=== PATIENT | female | born 1995 | race Caucasian/White ===

== ENCOUNTER 2023-10-23 18:53 | Emergency (ER) | payer OTHER, SELFPAY ==
[2023-10-23 19:02] VITALS: BP 116/70; PULSE 69; RESP 18; TEMP 36.6; O2SAT 99; BMI 29.4
--- NOTE | 2023-10-23 19:14 | ECG_ITS ---
The [facility] Test Date: 2023-10-23 Pat Name: NEIL TIMMONS Department: Room: - Gender: Female Security Developer: : 1995 Requested By: VALERI QUINONEZ Order Number: [id number] Reading MD: CAIT OROZCO Measurements Intervals [place] Rate: 66 P: 49 MO: 200 QRS: 39 QRSD: 86 T: 16 QT: 392 QTc: 405 Interpretive Statements 1100 Sinus rhythm 9110 normal ECG No previous ECG available for comparison Electronically Signed On 10-23-2023 23:40:50 EDT by CAIT OROZCO
--- NOTE | 2023-10-23 19:14 | CT_ITS ---
The [address] [address] Patient Name: NEIL TIMMONS MRN: [id number] date: 1995 Sex: F Assigned Patient Location: ER Current Patient Location: ER Accession/Order Number: [id number] Exam Date: 10/23/2023 19:58 Report Date: 10/23/2023 20:51 At the request of: ISABELLE DELEON Procedure: CT chest w con EXAM: CT chest w con HISTORY: Anterior chest wall pain and mass COMPARISON: None. TECHNIQUE: CT of the chest with intravenous contrast. Dose reduction techniques were achieved by using automated exposure control and/or adjustment of mA and/or kV according to patient size and/or use of iterative reconstruction technique. FINDINGS: TUBES AND IMPLANTS: None. CHEST: CHEST WALL AND LOWER NECK: Unremarkable. MEDIASTINUM AND JOSHUA: Unremarkable. BONES: No suspicious lesions. AORTA: No aneurysm PULMONARY ARTERIES: No embolism CORONARY ARTERIES: No coronary artery calcifications. HEART: Unremarkable. LUNG AND AIRWAYS: Unremarkable. PLEURA: Unremarkable. UPPER ABDOMEN: Postsurgical changes of gastric bypass surgery. Small hyperenhancing 1.2 centimeter lesion seen in the left lobe of the liver. CT/CT chest w con IMPRESSION: No acute intrathoracic process or mass is identified. Indeterminate arterially enhancing 1.2 centimeter lesion seen in the left lobe of the liver. This may represent an adenoma or flash filling hemangioma. Abdominal MR can be considered for further evaluation as clinically warranted. Electronically authenticated by: LAURA KIRKPATRICK Date: 10/23/2023 20:51
--- NOTE | 2023-10-23 19:17 | ED.GENADUL1 ---
HPI - General Adult General Chief complaint: Abdominal Pain Stated complaint: Abdominal Pain Time Seen by Provider: 10/23/23 19:02 Source: patient Mode of arrival: walk-in Limitations: no limitations History of Present Illness HPI narrative: Patient is a 28-year-old Female who presents to the emergency department for pain over the xiphoid process of the sternum and left anterior chest wall. She states she feels a lump . She has no significant abdominal pain. She reports minimal soreness in the epigastrium under the xiphoid process. She states she was seen at [place] for this 4 days ago and had a CT of the abdomen and pelvis which was normal. She states she was discharged home on Pepcid. She has a history of acid reflux. She states she came to this emergency department because she does not believe that [facility] [place] did anything for her. She is not concerned for . She has had previous tubal ligation, gastric bypass, cholecystectomy. Related Data Home Medications ?Medication ?Instructions ?Recorded ?Confirmed sertraline 50 mg tablet 50 mg PO Q24H 10/23/23 10/23/23 Previous Rx's ?Medication ?Instructions ?Recorded methocarbamol 750 mg tablet 750 mg PO TID PRN pain #20 tabs 10/23/23 Allergies Allergy/AdvReac Type Severity Reaction Status Date / Time No Known Drug Allergies Allergy Verified 10/23/23 19:08 Review of Systems ROS Constitutional Denies: fever or chills Ears, nose, mouth, and throat Denies: throat pain or nasal congestion Cardiovascular Denies: chest pain Respiratory Denies: shortness of breath or cough Gastrointestinal Denies: nausea, vomiting or diarrhea Genitourinary Denies: painful urination Musculoskeletal Denies: back pain Integumentary/Breast Denies: rash Neurological Denies: headache Hematologic/Lymphatic Denies: easy bruising or easy bleeding Exam Narrative Exam Narrative: Gen.: Awake, alert, in no distress Head: Normocephalic, atraumatic ENT: Moist mucous membranes Respiratory: No respiratory distress, lungs clear bilaterally Cardio: Regular rate and rhythm; Tenderness over the xiphoid process and anterior ribs inferiorly. No significant epigastric tenderness. Chest wall is painful with inspiration and movement; There is no palpable mass, erythema, wounds or fluctuance of the chest wall Extremities: Moves extremities equally Psych: Normal mood and affect Neuro: No focal neuro deficit Skin: Warm, dry, intact Constitutional Vital Signs, click to edit/add: Last Vital Signs Temp 97.9 F 10/23/23 19:02 Pulse 69 10/23/23 19:02 Resp 18 10/23/23 19:02 BP 116/70 10/23/23 19:02 Pulse Ox 99 10/23/23 19:02 O2 Del Method Room Air 10/23/23 19:02 Course Vital Signs Vital signs: Vital Signs Temperature 97.9 F 10/23/23 19:02 Pulse Rate 69 10/23/23 19:02 Respiratory Rate 18 10/23/23 19:02 Blood Pressure 116/70 10/23/23 19:02 Pulse Oximetry 99 10/23/23 19:02 Oxygen Delivery Method Room Air 10/23/23 19:02 Temperature 97.9 F 10/23/23 19:02 Pulse Rate 69 10/23/23 19:02 Respiratory Rate 18 10/23/23 19:02 Blood Pressure 116/70 10/23/23 19:02 Pulse Oximetry 99 10/23/23 19:02 Oxygen Delivery Method Room Air 10/23/23 19:02 Medical Decision Making MDM Narrative Medical decision making narrative: Patient treated with Norflex and [place] in the ER. Records reviewed from [place] showing a normal CT of the abdomen and pelvis as well as normal labs. Labs repeated today with EKG, these are unremarkable. CT of the chest shows no evidence of mass or bony abnormalities of the chest wall. There is no evidence of saddle PE, no other lung abnormalities. Patient with stable vital signs, reevaluated by attending physician prior to discharge. She is discharged home with Robaxin. Follow-up with PCP and return to the ER if symptoms change or worsen. History and physical are consistent with musculoskeletal chest wall pain over the ribs and xiphoid process. Medical Records Medical records reviewed: Yes I reviewed the patient's medical records Lab Data Lab results reviewed: Yes I reviewed the patient's lab results Labs: Lab Results 10/23/23 Range/Units 19:25 WBC 5.6 (4.0-11.0) 10^3/uL RBC 3.71 L (4.20-5.40) 10^6/uL Hgb 10.8 L (12.0-16.0) g/dL Hct 32.8 L (36.0-48.0) % MCV 88.4 (81.0-99.0) fL MCH 29.1 (26.7-34.0) pg MCHC 32.9 (29.9-35.2) g/dL RDW 12.9 (11.0-15.0) % Plt Count 214 (150-450) 10^3/uL MPV 10.6 (9.5-13.5) fL Neut % (Auto) 58.9 (43.0-75.0) % Lymph % (Auto) 32.1 (20.5-60.0) % Clinton % (Auto) 6.6 (1.7-12.0) % Eos % (Auto) 1.8 (0.9-7.0) % Baso % (Auto) 0.4 (0.2-2.0) % Neut # (Auto) 3.3 (1.4-6.5) 10^3/uL Lymph # (Auto) 1.8 (1.2-3.8) 10^3/uL Clinton # (Auto) 0.4 (0.3-0.8) 10^3/uL Eos # (Auto) 0.1 (0.0-0.7) 10^3/uL Baso # (Auto) 0.0 (0.0-0.1) 10^3/uL Abs Immat Gran (auto) 0.01 (0.00-0.03) 10^3/uL Imm/Tot Granulo (auto) 0.2 (0.0-0.5) % PT 11.1 (9.0-11.6) sec INR 1.05 Sodium 142 (136-145) mmol/L Potassium 3.1 L (3.5-5.1) mmol/L Chloride 109 H (98-107) mmol/L Carbon Dioxide 26.5 (21.0-32.0) mmol/L Anion Gap 9.6 BUN 17.0 (7.0-18.0) mg/dL Creatinine 0.79 (0.55-1.02) mg/dL Est GFR ( Amer) >60 (>=60) Est GFR (Non-Af Amer) >60 (>=60) BUN/Creatinine Ratio 21.5 Glucose 84 (74-106) mg/dL Calcium 8.6 (8.5-10.1) mg/dL Total Bilirubin 0.3 (0.2-1.0) mg/dL AST 17 (15-37) U/L ALT 38 (14-59) U/L Alkaline Phosphatase 65 (46-116) U/L Troponin I High Sens <4.0 L (4.0-51.3) pg/mL Total Protein 6.5 (6.4-8.2) g/dL Albumin 3.5 (3.4-5.0) g/dL Globulin 3.0 g/dL Albumin/Globulin Ratio 1.2 Serum HCG, Qual Negative (NEGATIVE) Imaging Data CT scan - chest: Attestation: I have reviewed the pertinent imaging results. Radiologist's impression: ITS Impressions Chest CT 10/23/23 19:14 IMPRESSION: No acute intrathoracic process or mass is identified. Indeterminate arterially enhancing 1.2 centimeter lesion seen in the left lobe of the liver. This may represent an adenoma or flash filling hemangioma. Abdominal MR can be considered for further evaluation as clinically warranted. Electronically authenticated by: LAURA KIRKPATRICK Date: 10/23/2023 20:51 Discharge Plan Discharge Stand Alone Forms: Portal Instructions Chief Complaint: Abdominal Pain Clinical Impression: Acute chest wall pain Patient Disposition: Home, Self-Care Time of Disposition Decision: 21:03 Condition: Good Prescriptions / Home Meds: New methocarbamol 750 mg tablet 750 mg PO TID PRN (Reason: pain) Qty: 20 0RF No Action sertraline 50 mg tablet 50 mg PO Q24H Print Language: Martiniquais Instructions: Chest Wall Pain (ED) Referrals: Eleni Tran NP [Primary Care Provider] - 1 week
[2023-10-23 19:31] LABS: Basophils Percent Auto 0.4 % (0.2-2.0); Eosinophils Absolute Auto 0.1 10^3/uL (0.0-0.7); Eosinophils Percent Auto 1.8 % (0.9-7.0); Hematocrit 32.8 % (36.0-48.0); Hemoglobin 10.8 g/dL (12.0-16.0); Immature Granulocytes Abs Auto 0.01 10^3/uL (0.00-0.03); Immature Granulocytes Pct Auto 0.2 % (0.0-0.5); Lymphocytes Absolute Auto 1.8 10^3/uL (1.2-3.8); Lymphocytes Percent Auto 32.1 % (20.5-60.0); Mean Corpuscular HGB Conc 32.9 g/dL (29.9-35.2); Mean Corpuscular Hemoglobin 29.1 pg (26.7-34.0); Mean Corpuscular Volume 88.4 fL (81.0-99.0); Mean Platelet Volume 10.6 fL (9.5-13.5); Monocytes Absolute Auto 0.4 10^3/uL (0.3-0.8); Monocytes Percent Auto 6.6 % (1.7-12.0); Neutrophils Absolute Auto 3.3 10^3/uL (1.4-6.5); Neutrophils Percent Auto 58.9 % (43.0-75.0); Platelet Count 214 10^3/uL (150-450); Red Blood Count 3.71 10^6/uL (4.20-5.40); Red Cell Distribution Width 12.9 % (11.0-15.0); White Blood Count 5.6 10^3/uL (4.0-11.0)
[2023-10-23 19:41] LABS: HCG Qualitative NEGATIVE (NEGATIVE)
[2023-10-23 19:44] LABS: INR 1.05; Prothrombin Time 11.1 sec (9.0-11.6)
[2023-10-23] MEDS: ORPHENADRINE 60 MG/ 2 ML VIAL IV (19:50)
[2023-10-23] MEDS: HYDROCODONE/ACET 5-325 MG TABLET 1 TAB PO (19:50)
[2023-10-23 19:51] LABS: Alanine Aminotransferase 38 U/L (14-59); Albumin Globulin Ratio 1.2; Albumin Level 3.5 g/dL (3.4-5.0); Alkaline Phosphatase 65 U/L (46-116); Anion Gap 9.6; Aspartate Amino Transferase 17 U/L (15-37); BUN Creatinine Ratio 21.5; Bilirubin Total 0.3 mg/dL (0.2-1.0); Calcium 8.6 mg/dL (8.5-10.1); Carbon Dioxide 26.5 mmol/L (21.0-32.0); Chloride 109 mmol/L (98-107); Estimated GFR (African America >60 (>=60); Estimated GFR (Non-African Ame >60 (>=60); Glucose 84 mg/dL (74-106); Potassium 3.1 mmol/L (3.5-5.1); Sodium 142 mmol/L (136-145); Total Protein 6.5 g/dL (6.4-8.2); Troponin I High Sensitivity <4.0 pg/mL (4.0-51.3)
[2023-10-23 21:00] VITALS: BP 120/68; PULSE 80; RESP 18; O2SAT 98
== END 2023-10-23 21:00 | disposition home or self-care (01) ==
PROVIDERS: Physician Assistant; Emergency Provider Emergency Medicine; PCP Nurse Practitioner
DX: R07.89 Other chest pain (principal); Z90.49 Acquired absence of other specified parts of digestive tract; Z98.84 Bariatric surgery status; Z98.51 Tubal ligation status; Z79.899 Other long term (current) drug therapy
CPT/HCPCS: 36415; 71260; 80053; 84484; 84703; 85025; 85610; 93005; 96374; 99285; Q9967

== ENCOUNTER 2024-10-08 07:38 | Outpatient (OUT) | payer OTHER, SELFPAY | END 2024-10-08 07:39 | disposition home or self-care (01) | LOC: MRI 07:40 | PROVIDERS: PCP Nurse Practitioner; Visit Provider Nurse Practitioner | DX: K76.9 Liver disease, unspecified (principal) | CPT/HCPCS: 74183; A9575 ==

== ENCOUNTER 2025-01-01 19:07 | Emergency (ER) | payer OTHER, SELFPAY ==
--- OUTSIDE RECORDS SUMMARY | 2017-04-06 09:30 | XMS_ITS | Continuity of Care Document ---
Author Organization [employer] [facility] Address [address] [place] [address] Phone Care Team Providers Care Cell Changer Name Role Phone Jose Cruz Meadows MD Unavailable Unavailable Procedures Procedure Date OFFICE CONSULTATION Advance Directives Directive Yes / No Effective Date File Name No Information Encounters Encounter Description Practice Location Reason(s) For Visit Diagnoses Date Provider Providers Copied on Encounter OFFICE CONSULTATION [employer] [facility], [address], [place], [place], [id number], [place] tel:[phone] [facility] No Information Abdiel Billingsley. [address], [place], [id number], [place]. tel:[phone] Referring Provider: Jose Cruz Candelario, [address], [address]. tel:[phone] Family History Family Member Type Diagnosis Age At Onset No Information Payers Payer name Insurance type Covered republican ID Authoriza tibrittney(s) [employer] [id number] Social History Type Description Quantity Date Captured Comments Sex Female Smoking Status No Information Sexual Orientation Straight or heterosexual Chief Complaint And Reason For Visit No Information Reason For Referral Reason For Referral No Information History Of Present Illness Encounter Date Complaint History Of Prese nt Illness No Information Functional Status Date Functional Assessmen t No Information Instructions Date Instruction Additional Infor mation No Information Assessments Type Assessment Date No Information Patient Care Teams Name Effective Dates (start - stop) Status Members No Information
--- OUTSIDE RECORDS SUMMARY | 2022-10-16 07:30 | XMS_ITS | Continuity of Care Document ---
Author Organization [facility] Address [address] [place] [address] Phone Care Team Providers Care Union Contract Representative Name Role Phone Donn Rodriguez DMD Unavailable Unavailable Allergies, Adverse Reactions, Alerts Substance Reaction Status Criticality No Known Allergies Active No Inform ation Procedures Procedure Date Intraoral-complete Series (bw) Oral Hygiene Instruction Comp Oral Eval New/estab Patient 2022 Advance Directives Directive Yes / No Effective Date File Name No Information Encounters Encounter Description Practice Location Reason(s) For Visit Diagnoses Date Provider Providers Copied on Encounter [facility], [address] [place] [address], [id number], [place] tel:[phone] [facility] DN (chief complaint) Encounter for screening for dental disorders Jennifer Pop. [address] [place], [place], [id number], [place]. tel:[phone] Family History Family Member Type Diagnosis Age At Onset No Information Payers Payer name Insurance type Covered constitution party ID Savannah fallon(s) Paulie Carlson [facility] [employer] [id number] D Medicaid [facility] [id number] Social History Type Description Quantity Date Captured Comments Alcohol Use Details Unknown Caffeine Use Details Unknown Tobacco Use Status No Information Smoking Status No Information Sex Female Sexual Orientation Straight or heterosexual Gender Identity Female Vital Signs Date / Time: Height Weight BMI Pulse Rate Blood Pressure Temperature Respiratory Rate Body Surface Area Head Circumference Head Circ. Percentile Wt./Cristo. Percentile BMI percentile Pulse Ox Inhaled Ox 12:17 PM 62 /min 105/72 mm[Hg] 98.10 F Chief Complaint And Reason For Visit From encounter dated '10/16/2022 11:30'. DN (chief complaint) Reason For Referral Reason For Referral No Information Plan Of Treatment Date Type Action Status Goal Influenza vaccine. Due on Ma due Goal Tdap. Due on due Goal PAP. Due on due Goal Depression screening. Due on due Goal Tdap Vaccine. Due on 2022 due Goal RLP. Due on due Goal PRAPARE ASSESSMENT. Due on M due History Of Present Illness Encounter Date Complaint History Of Prese nt Illness DN Functional Status Date Functional Assessmen t No Information Instructions Date Instruction Additional Infor mation No Information Assessments Type Assessment Date No Information Patient Care Teams Name Effective Dates (start - stop) Status Members No Information
--- OUTSIDE RECORDS SUMMARY | 2023-05-25 05:30 | XMS_ITS | Continuity of Care Document ---
Author [facility] [employer] [facility] Address [address] [place] [address] Phone Care Team Providers Care Administrative Assistant Front Desk Name Role Phone Emery Roberts DO Unavailable Unavailabl e Allergies, Adverse Reactions, Alerts Substance Reaction Status Criticality No Known Allergies Active No Inform ation Procedures Procedure Date OFFICE/OUTPATIENT VISIT, [facility] Advance Directives Directive Yes / No Effective Date File Name No Information Encounters Encounter Description Practice Location Reason(s) For Visit Diagnoses Date Provider Providers Copied on Encounter OFFICE/OUTPA TIENT VISIT, [facility], [address] [place], [place], [id number] , [place] [phone] [facility] panniculitis affecting back (chief complaint) Panniculitis affecting regions of neck and back, site unspErythema intertrigo 3 Armando Adrian. [address], [id number], [place]. tel:[phone] Referring Provider: Emery Roberts DO [address], [address]. tel:[phone] Family History Family Member Type Diagnosis Age At Onset Father Problem (finding) Mother Problem Alive and well Payers Payer name Insurance type Covered constitution party ID Authoriza tion(s) [employer] [place] [employer] [place] [id number] Social History Type Description Quantity Date Captured Comments Alcohol Use Details Unknown Caffeine Use Details Unknown Tobacco Use Status Smoking Status Unknown if ever smoked Non-Smoking Tobacco Use Details : No Details Available : No Details Available Sex Female Sexual Orientation Straight or heterosexual Vital Signs Date / Time: Height Weight BMI Pulse Rate Blood Pressure Temperature Respiratory Rate Body Surface Area Head Circumference Head Circ. Percentile Wt./Cristo. Percentile BMI percentile Pulse Ox Inhaled Ox 9:54 AM 64.00 in 83.189 kg (183.40 lbs) 31.4 8 kg/m eter (2) 132/70 mm[Hg] Chief Complaint And Reason For Visit From encounter dated '05/25/2023 09:30'. panniculitis affecting back (chief complaint). Description: Cristy is a very pleasant 28female who was referred to me for panniculectomy after massive weight loss. She has done a fantastic job losing a very large amount weight. She underwent bariatric [facility] 2 years agoCurrently she vapes regularly. Upon my visit with patient and her family member/friend the room smelled signficantly of marijuana Reason For Referral Reason For Referral No Information Plan Of Treatment Date Type Action Status Future Order: Lab Order Nicotine Lvl & Cotinine Lvl, Serum/Plasma ([id number]), Ordered on: Ordered History Of Present Illness Encounter Date Complaint History Of Prese nt Illness panniculitis affecting back Iwona springer is a very pleasant 28female who was referred to me for panniculectomy after massive weight loss. She has done a fantastic job losing a very large amount weight. She underwent bariatric surgery by Dr. Paul at [facility] 2 years agoCurrently she vapes regularly. Upon my visit with patient and her family member/friend the room smelled signficantly of marijuana Functional Status Date Functional Assessmen t No Information Instructions Date Instruction Additional Infor mation No Information Assessments Type Assessment Date assessment Erythema intertrigo assessment Panniculitis affecting back Patient Care Teams Name Effective Dates (start - stop) Status Members No Information
--- OUTSIDE RECORDS SUMMARY | 2023-12-19 09:30 | XMS_ITS ---
Author Organization [facility] [place] Address [address] [place] [address] Care Team Providers Care Library Historian Name Role Phone Eleni Tran CNP Primary Care Provider Unavail Emery Beckford Unavailable [phone] Allergies No Known Allergies REASON FOR VISIT p/o 12/11 panniculectomy Medications Medication SIG (Take, Route, Frequency, Duration) Notes Start Date End Date Status Zoloft 50 MG 1 tablet Orally Once a day Active Social History Tobacco Use: Social History Observation Description Date Details (start date - stop date) Never Smoker NA - NA Tobacco Use/Smoking Question Answer Notes Patient is a nonsmoker Vital Signs Height 64 in 12/19/2023 Weight 177 lbs 12/19/2023 BMI 30.38 kg/m2 12/19/2023 Encounters Encounter Location Date Provider Diagnosis The [address] [facility] [address] [place] [address] 12/19/2023 Emery Roberts Abdominal pannus E65 Assessments Encounter Date Diagnosis (ICD Code) Assessment Notes Treatment Notes Treatment Clinical Notes Section Notes 12/19/2023 Abdominal pannus (ICD-10 - E65) Brianna is doing very well following panniculectomy. Right drain was removed in the office today. I have discussed slowly returning to activity as tolerated. Ok to start light exercise at 4 weeks post-operatively . Ok to return to most activity at 6 weeks post-operatively . Continue wearing abdominal compression band as long as tolerated to reduce swelling. Pt should avoid using tape over her incisions. She should also avoid standing up straight. She can f/u with in 1 week to remove the left remaining drain. If she has any questions or concerns, she is welcome to call. Plan Of Treatment Treatment Notes Assessment Notes Abdominal lisa Reed is doing bryn y well following panniculectomy. Right drain was removed in the office today. I have discussed slowly returning to activity as tolerated. Ok to start light exercise at 4 weeks post-operatively. Ok to return to most activity at 6 weeks post-operatively. Continue wearing abdominal compression band as long as tolerated to reduce swelling. Pt should avoid using tape over her incisions. She should also avoid standing up straight. She can f/u with in 1 week to remove the left remaining drain. If she has any questions or concerns, she is welcome to call. Next Appt Details Follow Up: 1 Week, Reason: Progress Notes * Brianna YE MDOB:1994 (28 yo F)Acc No.[id number]:12/19/2023 Progress Note Patient: Brianna ARCHER Provider: Felix Roberts DO :1995 A ge:28 Y S ex:Female Date:12/19/2023 Address:[address] [place], [place] [id number] Pcp:Eleni Tran CNP Check In:01:05 PM ESTCheck O ut:01:43 PM EST Subjective: * Chief Complaints: * P /o 12/11 panniculectomy * HPI: G eneral: Brianna returns 1 week post operatively from panniculectomy (12/12/23). Patient reports feeling well. She is tolerating a diet and having normal bowel movements. Pain is well controlled. Slowly starting to increase activity. No abnormal abdominal wall swelling. She states that she is allergic to the tape. She has been standing up straight. * ROS: G ENERAL: No fevers/chills CARDIOVASCULAR: No chest pain/palpitations PULMONARY: No SOB/wheezing or cough GI: No nausea/vomiting. No constipation/diarrhea : No issues with urination MUSCULOSKELETAL: No new joint pain or issues with extremities INTEGUMENT: No new rashes or lesions. No issues with incision(s). * Active Problem List M54.02 Panniculitis involvi ng cervical region Modified On:09/19/2023W/U Status:confirmed E65 Panniculus Modified On:09/19/2023U Status:confirmed M54.00 Panniculitis affecti ng regions of neck and back, site unspecified Modified On:10/31/2023U Status:confirmed E65 Abdominal pannus Modified On:10/31/2023 Status:confirmed * Medical History: * Surgical History: c holecystectomy section x 3 gastric bypass laser surgery on face Panniculectomy 12/10/2023 * Hospitalization/Major Diagno stic Procedure: N o Hospitalization History. * Family History: F ather: , overdosed at 47. M other: alive. S ister(s): alive. 2 sister(s) - healthy. . * Social History: T obacco Use: T obacco Use/Smoking P atient is a n onsmoker * Medications: T akingZoloft(Sertraline HCl) 50 MG Tablet 1 tablet Orally Once a day Medication List reviewed and reconciled with the patientTaking Zoloft(Sertraline HCl) 50 MG Tablet 1 tablet Orally Once a day Medication List reviewed and reconciled with the patient * Allergies: N .K.D.A.no[Allergies Verified] Objective: * Vitals: W t:177lbs, Ht: 64 , BMI:30.38Index, Ht-cm: 162.56 cm, Wt-k.29 kg. * Examination: G eneral Surgery: Post-Op: T ransverse abdominal incision is c/d/i and healing well. Pictures were taken as below Right drain removed in the office today. Left drain left in place. Assessment: * Assessment: 1. A bdominal pannus - E65 (Primary) Plan: * Treatment: * Procedure Codes: * Disposition & Communication: * Scribe Attestation: Kourtney Romero (scribe), documented on behalf of Dr. Emery Roberts * Follow Up: 1 Week * * Sign off status: Completed Visit Status: C HK (Check Out) true * Provider: Felix Roberts DO Date: 0 12/19/2023 Generated for Jessie cohn/Alvin/Toriitting on: 0 01/01/2025 07:13 PM EDT History and Physical Notes * Examination Category Sub-Category Detail Notes Category Not es General Surgery Post-Op: Transverse abdom inal incision is c/d/i and healing well. Pictures were taken as below Right drain removed in the office today. Left drain left in place
--- OUTSIDE RECORDS SUMMARY | 2023-12-25 06:00 | XMS_ITS ---
Author Organization The [facility] in [place] Address [address] [place] [address] Care Team Providers Care House Supervisor Name Role Phone Eleni Tran CNP Primary Care Provider Unavail ani RobertsEmery Unavailable [phone] Allergies No Known Allergies REASON FOR VISIT S/P PANNCIULECTOMY Medications Medication SIG (Take, Route, Frequency, Duration) Notes Start Date End Date Status Zoloft 50 MG 1 tablet Orally Once a day Active Social History Tobacco Use: Social History Observation Description Date Details (start date - stop date) Never Smoker NA - NA Tobacco Use/Smoking Question Answer Notes Patient is a nonsmoker Vital Signs Height 64'' in 12/25/2023 Weight 177 lbs 12/25/2023 BMI 30.38 kg/m2 12/25/2023 Encounters Encounter Location Date Provider Diagnosis The [address] [address] 12/25/2023 Emery Roberts Abdominal pannus E65 Assessments Encounter Date Diagnosis (ICD Code) Assessment Notes Treatment Notes Treatment Clinical Notes Section Notes 12/25/2023 Abdominal pannus (ICD-10 - E65) Brianna returns 2 weeks post-operatively from panniculectomy. Left drain was removed in the office today. I have discussed slowly returning to activity as tolerated. Ok to start light exercise at 4 weeks post-operatively . Ok to return to most activity at 6 weeks post-operatively . Continue wearing abdominal compression band as long as tolerated to reduce swelling. I have instructed her to continue keeping her incisions moist with triple antibiotic ointment/Vaselin e petroleum jelly. I would like to follow up with her in 2 weeks to monitor her progress. If she has any questions or concerns, she is welcome to call. Plan Of Treatment Treatment Notes Assessment Notes Abdominal sheridannus Brianna returns 2 we eks post-operatively from panniculectomy. Left drain was removed in the office today. I have discussed slowly returning to activity as tolerated. Ok to start light exercise at 4 weeks post-operatively. Ok to return to most activity at 6 weeks post-operatively. Continue wearing abdominal compression band as long as tolerated to reduce swelling. I have instructed her to continue keeping her incisions moist with triple antibiotic ointment/Vaseline petroleum jelly. I would like to follow up with her in 2 weeks to monitor her progress. If she has any questions or concerns, she is welcome to call. Next Appt Details Follow Up: 2 Weeks, Reason: Progress Notes * Brianna TIMMONS MDOB:1994 (28 yo F)Acc No.[id number]:12/25/2023 Progress Notes Patient: Brianna ARCHER Provider: Felix Roberts DO :1995 A ge:28 Y S ex:Female Date:12/25/2023 Address:[address] [place], [place] [id number] Pcp:Eleni Tran TELEVISION INSTALLER HELPER Check In:09:40 AM ESTCheck O ut:10:07 AM EST Subjective: * Chief Complaints: * S /P PANNCIULECTOMY * HPI: G eneral: Brianna returns 2 weeks post-operatively from panniculectomy (12/12/23). Patient reports feeling well. She is tolerating a diet and having normal bowel movements. Pain is well controlled. Slowly starting to increase activity. No abnormal abdominal wall swelling. She states her drain has not been collecting a lot of drainage. She has been bending forward.. * Active Problem List M54.02 Panniculitis involvi ng cervical region Modified On:09/19/2023W/U Status:confirmed E65 Panniculus Modified On:09/19/2023W/U Status:confirmed M54.00 Panniculitis affecti ng regions of neck and back, site unspecified Modified On:10/31/2023W/U Status:confirmed E65 Abdominal pannus Modified On:10/31/2023W/U Status:confirmed * Medical History: * Surgical History: [...] Verified] Objective: * Vitals: W t:177lbs, Ht: 64'', BMI:30.38Index, Ht-cm: 162.56 cm, Wt-k.29 kg. * Examination: G eneral Surgery: Post-Op: T ransverse abdominal incision is c/d/i and healing well. Pictures were taken as below Left remaining drain removed in the office today Picture was taken in the office today . ? Assessment: * Assessment: 1. A bdominal pannus - E65 (Primary) Plan: * Treatment: * Procedure Codes: * Disposition & Communication: * Scribe Attestation: Kourtney Romero (scribe), documented on behalf of Dr. Emery Roberts * Follow Up: 2 Weeks * Images * mobile_12/25/2023 10:03:59 * Sign off status: Completed Visit Status: C HK (Check Out) true * Provider: Felix Roberts DO Date: 0 12/25/2023 Generated for Jessie cohn/Alvin/Toriitting on: 0 01/01/2025 07:13 PM EDT History and Physical Notes * Examination Category Sub-Category Detail Notes Category Not es General Surgery Post-Op: Transverse abdom inal incision is c/d/i and healing well. Pictures were taken as below Left remaining drain removed in the office today Picture was taken in the office today
--- OUTSIDE RECORDS SUMMARY | 2024-01-08 05:30 | XMS_ITS ---
Author Organization [facility] in [place] Address [address] [place] [address] Care Team Providers Care Scaler Packer Name Role Phone Eleni Tran CNP Primary Care Provider Unavail Emery Beckford Unavailable [phone] REASON FOR VISIT S/P PANNCIULECTOMY Encounters Encounter Location Date Provider Diagnosis [address] [address] 01/08/2024 Emery Roberts Abdominal pannus E65 Assessments Encounter Date Diagnosis (ICD Code) Assessment Notes Treatment Notes Treatment Clinical Notes Section Notes 01/08/2024 Abdominal pannus (ICD-10 - E65) Plan Of Treatment No Information Progress Notes * Brianna TIMMONS MDOB:1994 (29 yo F)Acc No.[id number]:01/08/2024 UNLOCKED PROGRESS NOTE Progress Notes Patient: Brianna ARCHER Provider: Felix Roberts DO :1995 A ge:28 Y S ex:Female Date:01/08/2024 Address:[address] [place], [place] [id number] Pcp:Eleni Tran CNP Subjective: * Chief Complaints: * 1 . S/P PANNCIULECTOMY. * HPI: G eneral: Brianna returns 4 weeks post-operatively from panniculectomy (12/12/23). Patient reports feeling well. She is tolerating a diet and having normal bowel movements. Pain is well controlled. Slowly starting to increase activity. No abnormal abdominal wall swelling. * Medical History: Objective: * Vitals: * Examination: G eneral Surgery: Post-Op: T ransverse abdominal incision is c/d/i and healing well. Pictures were taken as below Left remaining drain removed in the office today Picture was taken in the office today . ? Assessment: * Assessment: 1. A bdominal pannus - E65 (Primary) Plan: * Treatment: * * Electronic signature of Bri Roberts DO on 01/01/2025 at 07:13 PM EDT Sign off status: Pending Visit Status: C ANC (Cancelled) * Provider: Felix Roberts DO Date: 01/08/2024 Generated for Jessie cohn/Alvin/Toriitting on: 01/01/2025 07:13 PM EDT History and Physical Notes * Examination Category Sub-Category Detail Notes Category Not es General Surgery Post-Op: Transverse abdom inal incision is c/d/i and healing well. Pictures were taken as below Left remaining drain removed in the office today Picture was taken in the office today
--- OUTSIDE RECORDS SUMMARY | 2025-01-01 19:13 | XMS_ITS | Clinical Summary ---
Author Organization [employer] [facility] Address [id number] [address] [place] [address] Care Team Providers Care Instrument Processing Tech Name Role Phone Marc Eleni Hutton APRN-CAREER TECHNICAL EDUCATION INSTRUCTOR Primary Care Provider Allergies No known active allergies Medications simethicone (MYLICON) 80 mg chewable tablet Chew 1 tablet (80 mg total) and swallow every 6 (six) hours as needed for flatulence. 30 tablet 04/27/2019 Active wheat dextrin (BENEFIBER SUGAR FREE, DEXTRIN,) 3 gram/4 gram powder in packetIndicatio ns:Postcholecys tectomy diarrhea Take 1 Package by mouth 2 (two) times a day with meals. 60 packet 1 07/15/2019 Active sertraline (ZOLOFT) 50 mg tablet Take 1 tablet (50 mg total) by mouth in the morning. Active pantoprazole (PROTONIX) 20 mg EC tablet Take 1 tablet (20 mg total) by mouth in the morning. 05/02/2022 Active sucralfate (CARAFATE) 1 gram tablet Take 1 tablet (1 g total) by mouth in the morning and 1 tablet (1 g total) at noon and 1 tablet (1 g total) in the evening and 1 tablet (1 g total) before bedtime. 05/02/2022 Active butalbital-acet aminophen-caff (FIORICET, ESGIC) 50-325-40 mg per tablet Take 1 tablet by mouth every 4 (four) hours as needed for headaches. [id number] A 20 tablet 05/22/2024 Active Active Problems Problem Noted Date Diagnosed Date Epigastric pain 07/01/2019 Previous delivery affecting 0 04/25/2019 S/P repeat low transverse 04/25/2019 Edema during in third trimester 2018 Visual disturbance 02/21/2019 Meralgia paraesthetica, left 12/31/2017 BMI 45.0-49.9, adult 10/09/2017 Rh negative state in antepartum period 8 Anxiety and depression 10/09/2017 Resolved Problems Problem Noted Date Diagnosed Date Resolved Date Urinary tract infection in m other during third trimester of 03/29/2019 04/27/2019 headache in third trimester 02/27/2019 04/27/2019 Dizziness 02/27/2019 04/27/2019 headache in third trimester 02/21/2019 04/27/2019 Edema during in third trimester 02/21/2019 04/27/2019 Pelvic pressure in female 02/21/2019 with 39 completed weeks gestation 01/09/2018 10/09/2018 History of delivery 10/09/2017 04/27/2019 Overview (12/04/2017): Desires to . Encouraged to call a provider at [facility] (per patient request) Immunizations Immunization Administration Dates Next Due Rho (D) Immune Globulin 04/26/2019,02/05/2019,,10/23/2017 Tdap 04/27/2019(Deferred: - PT STATES I THINK I ALREADY HAD THAT AND I'M TIRED OF BEING POKED EDUCATED ON TDAP),01/11/2018() Family History Medical History Relation Name Comments Asthma Brother Hypertension Father Diabetes Maternal Grandmother Asthma Mother Emphysema Paternal Grandmother Asthma Sister Relation Name Status Comments Brother Father Maternal Grandmother Mother Paternal Grandmother Sister Social History Tobacco Use Types Packs/Day Years Used Date Smoking Tobacco: Never Smokeless Tobacco: Never Alcohol Use Standard Drinks/Week Comments No 0 (1 standard drink = 0.6 oz pur e alcohol) Childcare Answer Date Recorded Childcare Unknown 12/27/2018 Employment Answer Date Recorded Employment Unknown 12/27/2018 Hunger Screening Answer Date Recorded Within the past 12 months we worried whether our food would run out before we got money to buy more. Never True 05/22/2024 Within the past 12 months th e food we bought just didn't last and we didn't have money to get more. Never True 05/22/2024 Purpose - Life Answer Date Recorded Purpose and direction in life Unknown Comments No Sex and Gender Information Value Date Recorded Sex Assigned at Not on file Legal Sex Female 12:06 PM EDT Gender Identity Not on file Sexual Orientation Not on file Last Filed Vital Signs Vital Sign Reading Time Taken Comments Blood Pressure 140/80 05/22/2024 11:00 PM EDT Pulse 97 05/22/2024 6:29 PM EDT Temperature 36.4 C (97.6 F) 05/22/2024 6:29 PM EDT Respiratory Rate 18 05/22/2024 6:29 PM EDT Oxygen Saturation 97% 05/22/2024 10:45 PM EDT Inhaled Oxygen Concentration - - Weight 81.2 kg (179 lb) 05/22/2024 6:29 PM EDT Height 162.6 cm (5' 4 ) 05/22/2024 6:29 PM EDT Body Mass Index 30.73 05/22/2024 6:29 PM EDT Plan of Treatment Health Maintenance Due Date Last Done Comments Depression Screening 2005 Adult BMI Follow Up Plan 2011 Pap Smear 2014 COVID-19 Vaccine (2023-2 5 season) 2024 08/09/2021, 04/08/2021 Influenza Vaccine 03/30/2025 Adult BMI Screening 05/22/2025 05/22/2024 Tobacco Screening 05/22/2025 05/22/2024 DTaP,Tdap and Td Vaccines (7 - Td or Tdap) 10/11/2026 10/11/2016, 09/15/2010, 07/08/1998, Additional history exists Goals Goal Patient Goal Type Associated Problems Recent Progress Patient-Stated? Author <enter goal here> General Yes Layla Vasquez RN Note: Evaluation of progress towards goal: home - Layla Vasquez RN 07/03/19 11:18 AM Medical Devices Not on file Insurance [place] [employer] Advance Directives * Full Code (Latest Code Status on File) Date Activated Date Inactivated Comments 07/02/2019 12:11 AM 07/05/2019 3:25 PM * Full Code Date Activated Date Inactivated Comments 04/18/2019 1:47 PM 04/27/2019 5:28 PM * Full Code Date Activated Date Inactivated Comments 03/28/2019 8:29 PM 03/28/2019 10:57 PM * Full Code Date Activated Date Inactivated Comments 01/09/2018 6:41 AM 01/11/2018 4:47 PM Care Teams Instrument Processing Tech Relationship Specialty Start Date End Date Eleni Tran, PLANTING MACHINE CREWMAN-CAREER TECHNICAL EDUCATION INSTRUCTOR PCP - General Nurse Practitioner 08/07/23
--- OUTSIDE RECORDS SUMMARY | 2025-01-01 19:14 | XMS_ITS | Encounter Summary ---
Author Organization [facility] Address [address] [place] [address] Care Team Providers Care Education Faculty Member Name Role Phone Eleni Tran OPEN HEARTH DOOR LINER Unavailable [phone] Eleni Tran OPEN HEARTH DOOR LINER Unavailable [phone] Wai White MD Primary Care Provider [phone] Sukhwinder Christy DO Unavailable [phone] Encounter Details Date Type Department Care Team (Late st Contact Info) Description 12/04/2024 Results Follow-Up [facility] [address] [place] [address] Hillary Merino MA Social History Tobacco Use Types Packs/Day Years Used Date Smoking Tobacco: Former Cigarettes Q uit: 05/30/2023 Smokeless Tobacco: Never Alcohol Use Standard Drinks/Week Comments Yes 0 (1 standard drink = 0.6 oz pure alcohol) Alcohol: 1 or 2 drinks on typical day/monthly or less. B1300 Health Literacy Answer Date Recor ded How often do you need to hav e someone help you when you read instructions, pamphlets, or other written material from your doctor or pharmacy? Never 07/20/2024 Social Connection and Isolat ion Panel [NHANES] Answer Date Recorded In a typical week, how many times do you talk on the phone with family, friends, or neighbors? More than three times a week 07/20/2024 How often do you get togethe r with friends or relatives? Three times a week 07/20/2024 How often do you attend caro center or uatsdin services? Never 07/20/2024 Do you belong to any clubs o r organizations such as jew groups, unions, fraternal or athletic groups, or school groups? No 07/20/2024 How often do you attend meet ings of the clubs or organizations you belong to? Never 07/20/2024 Are you , , di vorced, , never , or living with a partner? 07/20/2024 AUDIT-C Answer Date Recorded Q1: How often do you have a drink containing alc ohol? Monthly or less 07/20/2024 Q2: How many drinks containi ng alcohol do you have on a typical day when you are drinking? 1 or 2 07/20/2024 Q3: How often do you have si x or more drinks on one occasion? Less than monthly 07/20/2024 Overall Financial Resource Strain (CARDIA) Answe r Date Recorded How hard is it for you to pa y for the very basics like food, housing, medical care, and heating? Not very hard 07/20/2024 PHQ-2 Answer Date Recorded Patient Health Questionnaire-2 Score 2 08/18/2024 [facility] - Occupational Stress Questionnaire Answer Date Recorded Do you feel stress - tense, restless, nervous, or anxious, or unable to sleep at night because your mind is troubled all the time - these days? Not at all 07/20/2024 Exercise Vital Sign Answer Date Recorde d On average, how many days pe r week do you engage in moderate to strenuous exercise (like a brisk walk)? 1 day 07/20/2024 On average, how many minutes do you engage in exercise at this level? 20 min 07/20/2024 Hunger Vital Sign Answer Date Recorded Within the past 12 months, y ou worried that your food would run out before you got the money to buy more. Never true 07/20/20 24 Within the past 12 months, t he food you bought just didn't last and you didn't have money to get more. Never true 07/20/2024 PRAPARE - Transportation Answer Date Re corded In the past 12 months, has l ack of transportation kept you from medical appointments or from getting medications? No 06/30 In the past 12 months, has l ack of transportation kept you from meetings, work, or from getting things needed for daily living? No 07/20/2024 Housing Stability Vital Sign Answer Osiel e Recorded In the last 12 months, was t here a time when you were not able to pay the mortgage or rent on time? No 07/20/2024 In the past 12 months, how m any times have you moved where you were living? 1 07/20/2024 At any time in the past [address] [facility], were you homeless or living in a residential (including now)? No 07/20/2024 Comments No Sex and Gender Information Value Date Recorded Sex Assigned at Not on file Legal Sex Female 11:14 PM EDT Gender Identity Not on file Sexual Orientation Not on file Occupation Industry Job Start Date Job End Date Not on file Not on file Not on file Not on file documented as of this encounter Plan of Treatment Not on file documented as of this encounter Visit Diagnoses Not on filedocumented in this encounter Care Teams Education Faculty Member Relationship Specialty Start Date End Date Wai White MD [address] [place] [address] PCP - General Family Medicine 08/18/24 Sukhwinder Christy DO [address] [facility] [place] [address] PCP - [facility] 07/30/24 Eleni Tran NP [address] [place] [address] Referring Physician Nurse Practitioner 02/19/23 Eleni Tran NP [address] [place] [address] Nurse Practitioner Family Medicine 08/18/24 documented as of this encounter
--- OUTSIDE RECORDS SUMMARY | 2025-01-01 19:14 | XMS_ITS | Encounter Summary ---
Author Organization [facility] Address [address] [place] [address] Care Team Providers Care Inspection And Testing Supervisor Name Role Phone Eleni Tran STITCH RUBBER Unavailable [phone] Eleni Tran STITCH RUBBER Unavailable [phone] Wai White MD Primary Care Provider [phone] Sukhwinder Christy DO Unavailable [phone] Encounter Details Date Type Department Care Team (Late st Contact Info) Description 10/09/2024 Orders Only [facility] [address] [place] [address] Eleni Tran NP [address] [place] [address] Social History Tobacco Use Types Packs/Day Years [...] week 07/20/2024 How often do you attend chur ch or hoahaoism services? Never 07/20/2024 Do you belong to any clubs o r organizations such as jainism groups, unions, fraternal or athletic groups, or [...] Recorded Patient Health Questionnaire-2 Score 2 08/18/2024 [facility] - Occupational Stress [...] any time in the past 12 m [facility], were you homeless or living in a [place] facility (including now)? No 07/20/2024 Comments Unknown Sex and Gender Information Value Date Recorded [...] on file documented as of this encounter Procedures Procedure Name Priority Date/Time Associated Diagnosis Comments MR ABDOMEN WO CONTRAST Routine 10/09/2024 9:38 AM EDT documented in this encounter Results * MR abdomen wo contrast (10/09/2024 9:38 AM EDT) Anatomical Region Laterality Modality Abdomen Magnetic Resonan ce Eleni Tran NP IMG MRI PROCEDURES Final Result documented in this encounter Visit Diagnoses Not on filedocumented in this encounter Care Teams Inspection And Testing Supervisor Relationship Specialty Start Date End Date Wai White MD [address] [place] [phone] PCP - General Family Medicine 08/18/24 Sukhwinder Christy DO [address] [address] PCP - [facility] 07/30/24 Eleni Tran NP [address] [place] [address] Referring Physician Nurse Practitioner 02/19/23 Eleni Tran NP [address] [place] [address] Nurse Practitioner Family Medicine 08/18/24 documented as of this encounter
--- OUTSIDE RECORDS SUMMARY | 2025-01-01 19:14 | XMS_ITS | Encounter Summary ---
Author Organization [facility] Address [address] [place] [address] Care Team Providers Care Safety And Security Manager Name Role Phone Eleni Tran FOOD ORDER DELIVERY RUNNER Unavailable [phone] Wai White MD Primary Care Provider [phone] Eleni Tran FOOD ORDER DELIVERY RUNNER Unavailable [phone] Eleni Tran FOOD ORDER DELIVERY RUNNER Unavailable [phone] Wai White MD Primary Care Provider [phone] Sukhwinder Christy DO Unavailable [phone] Encounter Details Date Type Department Care Team (Late st Contact Info) Description 09/02/2023 Abstract [facility] [address] [place] [address] Eleni Tran, FOOD ORDER DELIVERY RUNNER [address] [place] [address] Social History Tobacco Use Types Packs/Day Years Used Date Smoking Tobacco: Every Day Cigarettes Alcohol Use Standard Drinks/Week Comments Yes 0 (1 standard drink = 0.6 oz pure alcohol) Alcohol: 1 or 2 drinks on typical day/monthly or less. Caffeine: 1-2 cups/day PHQ-2 Answer Date Recorded Patient Health Questionnaire-2 Score 1 09/03/2023 Comments Unknown Sex and Gender Information Value Date Recorded Sex Assigned at Not on file Legal Sex Female 11:14 PM EDT Gender Identity Not on file Sexual Orientation Not on file Occupation Industry Job Start Date Job End Date Not on file Not on file Not on file Not on file documented as of this encounter Functional Status * Over the past 2 weeks, how often have you been bothered by any of the following problems? Question Answer Date of Assessment Author Little interest or pleasure in doing things Not at all 09/03/2023 1:38 PM ALLAN SHAH Feeling down, depressed, or hopeless Several days 09/03/2023 1:38 PM ALLAN SHAH Patient Health Questionnaire -2 Score 1 09/03/2023 1:38 PM ALLAN SHHA * If you checked off any problems on this questionnaire so far, Question Answer Date of Assessment Author How difficult have these problems made it for you to do your work, take care of things at home, or get along with other people? Not difficult at all 09/03/2023 1:38 PM NANDINI SHAH documented as of this encounter Plan of Treatment Not on file documented as of this encounter Visit Diagnoses Not on filedocumented in this encounter Care Teams Safety And Security Manager Relationship Specialty Start Date End Date Wai White MD [address] [place] [address] PCP - [facility] 02/19/23 08/17/24 Eleni Tran NP [address] [place] [address] PCP - [facility] 01/28/2407/29 Wai White MD [address] [place] [address] PCP - [facility] 08/18/24 Sukhwinder Christy DO [address] [facility] [address] [place] [address] PCP - [facility] 07/30/24 Eleni Tran NP [address] [place] [address] Referring Physician Nurse Practitioner 02/19/23 Eleni Tran NP [address] [place] [address] Nurse Practitioner Family Medicine 08/18/24 documented as of this encounter
--- OUTSIDE RECORDS SUMMARY | 2025-01-01 19:14 | XMS_ITS | Clinical Summary ---
Author Organization [facility] Address [address] [place] [address] Care Team Providers Care Tub Chucker Name Role Phone Eleni Tran INTERACTIVE GRAPHIC DESIGNER Unavailable [phone] Eleni Tran INTERACTIVE GRAPHIC DESIGNER Unavailable [phone] Wai White MD Primary Care Provider [phone] Sukhwinder Christy DO Unavailable [phone] Allergies No known active allergies Medications medroxyPROGESTE Aureliano (Depo-Provera) 150 MG/ML injectionIndica tions:Menorrhag ia with regular cycle,Irregular periods Inject 1 mL (150 mg) into the shoulder, thigh, or buttocks every 3 (three) months 1 mL 1 11/19/2024 Active Active Problems Problem Noted Date Diagnosed Date Vaginal yeast infection 09/29/2024 Nausea and vomiting 08/18/2024 Assessment & Plan (08/18/2024 7:22 PM EST): Neg flu test in office Likely viral in origin, others in home similar sxs Fluids, rest, zofran prn nausea If not better contact office Iron deficiency 08/18/2024 Assessment & Plan (08/18/2024 8:03 PM EST): Start once a day ferrous sulfate at 325mg daily Hx of bariatric surgery 07/21/2024 Pannus, abdominal 12/10/2023 Current every day smoker 10/02/2023 Assessment & Plan (08/18/2024 6:30 AM EST): The patient has been advised of the risks of continued smoking: stroke, CA, all forms of cancer, lung disease, and . Options for quitting smoking include: cold turkey, hypnosis, acupuncture, nicotine replacement meds (gum, lozenges, and patches), Buproprion, and Varenicline. At this time pt is encouraged to evaluate their goals for wanting to quit smoking, and reach out to provider when ready to start this process Hiatal hernia with GERD 09/03/2023 Dizziness 09/03/2023 Assessment & Plan (08/18/2024 7:23 PM EST): Check labs, states she had them done today Will review Assessment & Plan (09/03/2023 2:27 PM EST): Also admits to having panic attacks Unsure if related or not Check labs Hypoglycemia 09/03/2023 Assessment & Plan (08/18/2024 4:17 PM EST): Will attempt to order CGM reader, although no hx of DM, does have documented hypoglycemia Will also refer to endo regarding this, as it may have relationship to bariatric surgery If not approved, will order test strips instead Assessment & Plan (09/03/2023 2:27 PM EST): Unsure if this true hypoglycemia Will check labs Vitamin deficiency 09/03/2023 Vitamin D deficiency 11/14/2021 Assessment & Plan (08/18/2024 8:02 PM EST): Start vit d at 2,000 international units daily Anxiety and depression 10/09/2017 Assessment & Plan (08/18/2024 7:23 PM EST): Has been prescribed sertaline in the past, not currently taking anything Would like a letter for EYAD. Has a sinhala bull dog Pt is requesting an emotional support animal (EYAD) for the diagnosis of mental health. I have discussed with patient that if they are to obtain an EYAD that they are responsible for keeping the animal's health and immunization status UTD. Also it has been explained to the patient that if this animal were to injure a person that it is the responsibility of the restuarant crew worker of the EYAD, no this healthcare provider. The patient verbalizes understanding of this Assessment & Plan (09/03/2023 2:29 PM EST): Used to take sertraline in the past, wants to restart 1/2 pill daily for 7 days, then increase to 1 pill daily Fu in 4 weeks Take medication only as directed. This medication will take approximately 4-6 weeks to become effective. If any suicidal thoughts, thoughts of hurting others, or hallucinations contact the office or proceed to the Emergency Room for mental health evaluation. Medication may cause dry mouth, dizziness, and in some cases worsening in depression symptoms. Please contact the office if these occur. Resolved Problems Problem Noted Date Diagnosed Date Resolved Date Liver lesion, left lobe 07/21/2024 04/0 08/2024 Assessment & Plan (08/18/2024 4:15 PM EST): Was noted on CT chest from 10/23/23 I will order MRI of liver lesion at [facility] History of migraine headaches 10/02/2023 08/18/2024 Chlamydia 07/30/2013 10/02/2023 Encounters Date Type Department Care Team Description 12/04/2024 Results Follow-Up [facility] [address] [place] [address] Hillary Merino MA 11/19/2024 10:30 AM EDT Office Visit [facility] [place] [address] Amy Villa CNM Menorrhagia with regular cycle (Primary Dx); Normal gynecologic examination; Screening for cervical cancer; Irregular periods; Unprotected sexual intercourse 11/19/2024 Bamboo flowsheet [facility] [place] [address] Amy Villa CNM 11/18/2024 Travel 11/13/2024 Telephone [facility] [address] [place] [phone] Joanna Yi MA 10/28/2024 Telephone [facility] [address] [place] [address] Eleni Tran NP 10/09/2024 Orders Only [facility] [address] [place] [address] Eleni Tran NP from Last 3 Months Immunizations Immunization Administration Dates Next Due DTP 07/08/1998, 7,10/06/1996,02/02 HPV, Quadrivalent 08/24/2010,04/15/2010,12/24/19 10 Hep A, ped/adol, 2 dose 09/27/2010 Hep B, Adolescent or Pediatric 04/09/1998,1996,1993 MMR 04/26/1999,04/09/1998 Meningococcal MCV4P 09/15/2010 Pfizer SARS-CoV-2 Vaccinatio n 5-11 y.o. 08/09/2021 Polio, Unspecified 11/03/1996,10/06/1996, 994 Rho(D)-IG 04/26/2019, 9,01/10/2018,10/23 Tdap 10/11/2016,09/15/2010 Varicella 09/27/2010,04/09/1998 Family History Medical History Relation Name Comments No Known Problems Brother 2 brothers No Known Problems Sister 2 sisters Relation Name Status Comments Brother Father Alive Mother Alive Sister Social History Tobacco Use Types Packs/Day Years Used Date Smoking Tobacco: Former Cigarettes Q uit: 05/30/2023 Smokeless Tobacco: Never Tobacco Cessation:Counseling Given: Not Answered Alcohol Use Standard Drinks/Week Comments Yes 0 [...] often do you attend chur ch or buddhism services? Never 07/20/2024 Do you belong to any clubs o r organizations such as amish groups, unions, fraternal or athletic groups, or [...] Recorded Patient Health Questionnaire-2 Score 2 08/18/2024 [facility] - Occupational [...] any time in the past 12 m [facility], were you homeless or living in a group home (including now)? No 07/20/2024 Comments No Sex and Gender Information Value Date Recorded Sex Assigned at Not on file Legal Sex Female 11:14 PM EDT Gender Identity Not on file Sexual Orientation Not on file Occupation Industry Job Start Date Job End Date Not on file Not on file Not on file Not on file Last Filed Vital Signs Vital Sign Reading Time Taken Comments Blood Pressure 120/78 11/19/2024 10:45 AM EDT Pulse 84 08/18/2024 1:47 PM EST Temperature 37.1 C (98.7 F) 08/18/2024 1:47 PM EST Respiratory Rate 18 08/18/2024 1:47 PM EST Oxygen Saturation 98% 08/18/2024 1:47 PM EST Inhaled Oxygen Concentration - - Weight 78.9 kg (174 lb) 11/19/2024 10:45 AM EDT Height 162.6 cm (5' 4 ) 09/03/2023 1:27 PM EST Body Mass Index 29.87 09/03/2023 1:27 PM EST Plan of Treatment Health Maintenance Due Date Last Done Comments Pap Smear 2014 Influenza Vaccine (Season Ended) 2025 Cervical Cancer Screening 09/20/2027 HPV/Cotest 09/20/2027 09/20/2022, 11/16/2020 Procedures Procedure Name Priority Date/Time Associated Diagnosis Comments CHLAMYDIA/N.ONORRHOE AE AND T. VAGINALIS RNA, QUALITATIVE TMA,PAP VIAL Routine 11/19/2024 1:09 PM EDT THINPREP IMAGING PAP AND HPV DNA REFLEX HPV 16,18 Routine 11/19/2024 1:09 PM EDT Screening for cervical cancer MR ABDOMEN WO CONTRAST Routine 10/09/2024 9:38 AM EDT THINPREP PAP AND HPV MRNA E6/E7 REFLEX HPV 16,18/45 Routine 09/20/2022 from Last 3 Months or Most Recently Relevant to Health Maintenance Results * THINPREP IMAGING PAP AND HPV DNA REFLEX HPV 16,18 (11/19/2024 1:09 PM EDT) CLINICAL INFORMATION [facility] Comment:None given LMP [facility] Comment:NONE GIVEN PREV. PAP [facility] Comment:NONE GIVEN PREV. BX [facility] Comment:NONE GIVEN SOURCE [facility] Comment:None given STATEMENT OF ADEQUACY [facility] Comment: Satisfactory for evaluation. Endocervical/transformation zone component present. INTERPRETATION/RESU LT [facility] Comment: Cytology Results: Negative for intraepithelial lesion or malignancy. INFECTION [facility] Comment: Shift in vaginal gamaliel suggestive of bacterial vaginosis. COMMENT [facility] Comment: This case could not be evaluated with computer assisted technology. The slide was manually screened according to routine procedures. POLICE AND FIRE DISPATCHER [facility] Comment: TLAndree, CT(ASCP) CT Screening Location: [place] [address] REVIEW POLICE AND FIRE DISPATCHER [facility] Comment: ORA GUIDO(ASCP) CT Screening Location: [place] [address]. (ALWAYS MESSAGE) [facility] Comment: EXPLANATORY NOTE: The Pap is a screening test for cervical cancer. It is not a diagnostic test and is subject to false negative and false positive results. It is most reliable when a satisfactory sample, regularly obtained, is submitted with relevant clinical findings and history, and when the Pap result is evaluated along with historic and current clinical information. HPV DNA, HIGH RISK, CERVICAL Not Detected NOT DETECTED [facility] Comment: Not Detected High Risk HPV types (16,18,31,33,35,39,45,51,52, 56,58,59,66,68) were not detected. Other HPV types which cause anogenital lesions may be present. The significance of the other types of HPV in malignant processes has not been established. Methodology: Real Time PCR Swab Cervical swab / Unknown 11/19/2024 1:09 PM EDT 11/20/2024 3:43 AM EDT Narrative Resulting Agency Comment Performing Organization Information Site ID: [id number] Name: [facility] [place] Address: [address] [place] [address] [place] Director: Barney Acevedo M.D.,PhD Site ID: [id number] Name: [facility] Address: [address] [place] [address], [address] [place] [id number] Director: Shay Martinez MD us Amy Villa [facility] LAB CYTOLOGY ORDERABLES Sury alegria Result [facility] * CHLAMYDIA/N.ONORRHOEAE AND T. VAGINALIS RNA, QUALITATIVE TMA,PAP VIAL (11/19/2024 1:09 PM EDT) CHLAMYDIA TRACHOMATIS RNA, TMA, UROGENITAL NOT DETECTED NOT DETECTED [facility] NEISSERIA GONORRHOEAE RNA, TMA, UROGENITAL NOT DETECTED NOT DETECTED [facility] (ALWAYS MESSAGE) [facility] Comment: The analytical performance characteristics of this assay, when used to test SurePath(TM) specimens have been determined by [facility]. The modifications have not been cleared or approved by the FDA. This assay has been validated pursuant to the CLIA regulations and is used for clinical purposes. For additional information, please refer to https://Wishabi.GitHub.[employer]/faq/MDZ235 (This link is being provided for information/ educational purposes only.) TRICHOMONAS VAGINALIS, QL TMA, PAP VIAL NOT DETECTED NOT DETECTED [facility] Comment: The analytical performance characteristics of this assay have been determined by [facility]. The modifications have not been cleared or approved by the FDA. This assay has been validated pursuant to the CLIA regulations and is used for clinical purposes. For additional information, please refer to http://Wishabi.[employer]/ faq/Trichomonastma (This link is being provided for information/ educational purposes only.) 11/19/2024 1:09 PM EDT 11/20/2024 3:43 AM EDT Narrative Resulting Agency Comment Performing Organization Information Site ID: [id number] Name: [facility] Address: [address] [place] [address], [address] [place] [phone] Director: Shay Martinez MD Amy Villa CN LAB CYTOLOGY ORDERABLES Sury raji Result [facility] * MR abdomen wo contrast (10/09/2024 9:38 AM EDT) Anatomical Region Laterality Modality Abdomen Magnetic Resonan ce us Eleni Tran NP IMG MRI PROCEDURES Final Result * THINPREP PAP AND HPV MRNA E6/E7 REFLEX HPV 16,18/45 (09/20/2022) CLINICAL INFORMATION: None given [facility] LMP: NONE GIVEN [facility] PREV. PAP: NONE GIVEN [facility] PREV. BX: NONE GIVEN [facility] SOURCE: None given [facility] STATEMENT OF ADEQUACY: SEE COMMENT [facility] Comment: Satisfactory for evaluation. Endocervical/transformation zone component present. INTERPRETATION/R ESULT: Negative for intraepithelial lesion or malignancy. [facility] POLICE AND FIRE DISPATCHER : SEE COMMENT [facility] Comment: ORA ROSE(ASCP) CT screening location: [facility] [place], [address] [place] [address], [place] [address]. COMMENT SEE COMMENT [facility] Comment: EXPLANATORY NOTE: The Pap is a screening test for cervical cancer. It is not a diagnostic test and is subject to false negative and false positive results. It is most reliable when a satisfactory sample, regularly obtained, is submitted with relevant clinical findings and history, and when the Pap result is evaluated along with historic and current clinical information. HPV MRNA E6/E7 Not Detected Not Detected [facility] Comment: Methodology: Production Line Assembler-Mediated Amplification This assay detects E6/E7 viral messenger RNA (mRNA) from 14 high-risk HPV types (16,18,31,33,35,39,45,51,52,56,58,59,66,68). Cervical sources are required for HPV testing. If a vaginal source from a patient who has had a total hysterectomy with removal of cervix was submitted, please contact the testing laboratory for alternative testing options. For additional information, please refer to http://education.[employer]/faq/CNZ573a9 (This link if provided for information/ educational purposes only.) 09/20/2022 Amy [facility] Final Result [facility] from Last 3 Months or Most Recently Relevant to Health Maintenance Insurance [employer] Care Teams Tub Chucker Relationship Specialty Start Date End Date [place] MD [address] [place] [address] PCP - General Family Medicine 08/18/24 Sukhwinder Christy DO [address] [place] [address] PCP - [facility] 07/30/24 Eleni Tran NP [address] [place] [address] Referring Physician Nurse Practitioner 02/19/23 Eleni Tran NP [address] [place] [address] Nurse Practitioner Family Medicine 08/18/24
--- OUTSIDE RECORDS SUMMARY | 2025-01-01 19:14 | XMS_ITS | Encounter Summary ---
Author Organization [facility] Address [address] [place] [address] Care Team Providers Care Rehabilitation Nurse Name Role Phone Eleni Tran SUPERVISOR PLASTICS Unavailable [phone] Wai White MD Primary Care Provider [phone] Eleni Tran SUPERVISOR PLASTICS Unavailable [phone] Eleni Tran SUPERVISOR PLASTICS Unavailable [phone] Wai White MD Primary Care Provider [phone] Sukhwinder Christy DO Unavailable [phone] Encounter Details Date Type Department Care Team (Late st Contact Info) Description 10/24/2023 Orders Only [facility] [address] [place] [address] Eleni Tran, SUPERVISOR PLASTICS [address] [place] [address] Social History Tobacco Use Types Packs/Day Years Used Date Smoking Tobacco: Former Cigarettes Q uit: 05/30/2023 Smokeless Tobacco: Never Alcohol Use Standard Drinks/Week Comments Yes 0 (1 standard drink = 0.6 oz pure alcohol) Alcohol: 1 or 2 drinks on typical day/monthly or less. PHQ-2 Answer Date Recorded Patient Health Questionnaire-2 [...] Procedure Name Priority Date/Time Associated Diagnosis Comments ELECTROCARDIOGRAM REPORT Routine 024 8:14 AM EDT documented in this encounter Results * Electrocardiogram Report (10/23/2023 8:14 AM EDT) Eleni Tran SUPERVISOR PLASTICS IN CLINIC/BEDSIDE ORDERABLES Fi nal Result documented in this encounter Visit Diagnoses Not on filedocumented in this encounter Care Teams Rehabilitation Nurse Relationship Specialty Start Date End Date Wai White MD [address] [place] [address] PCP - [facility] 02/19/23 08/17/24 Eleni Tran NP [address] [place] [address] PCP - [facility] 01/28/2407/29 Wai White MD [address] [place] [address] PCP - [facility] 08/18/24 Sukhwinder Christy DO [address] [place] [address] PCP - [facility] 07/30/24 Eleni Tran NP [address] [place] [address] Referring Physician Nurse Practitioner 02/19/23 Eleni Tran NP [address] [place] [address] Nurse Practitioner Family Medicine 08/18/24 documented as of this encounter
--- OUTSIDE RECORDS SUMMARY | 2025-01-01 19:14 | XMS_ITS | Encounter Summary ---
Author Organization [facility] Address [address] [place] [address] Care Team Providers Care Core Placer Name Role Phone Eleni Tran MUFFLE OPERATOR Unavailable [phone] [place] MD Primary Care Provider [phone] Eleni Tran MUFFLE OPERATOR Unavailable [phone] Eleni Tran NP Unavailable [phone] Wai White MD Primary Care Provider [phone] Sukhwinder Christy DO Unavailable [phone] Reason for Visit * Reason Comments Med Refill Encounter Details Date Type Department Care Team (Late st Contact Info) Description 08/24/2023 Refill [facility] [address] [place] [address] Eleni Tran MUFFLE OPERATOR [address] [place] [address] Social History Tobacco Use Types Packs/Day Years Used Date Smoking Tobacco: Every Day Cigarettes Alcohol Use Standard Drinks/Week Comments Yes 0 (1 standard drink = 0.6 oz pure alcohol) Alcohol: 1 or 2 drinks on typical day/monthly or less. Caffeine: 1-2 cups/day Comments Unknown Sex and Gender Information Value Date Recorded Sex Assigned at Not on file Legal Sex Female 11:14 PM EDT Gender Identity Not on file Sexual Orientation Not on file Occupation Industry Job Start Date Job End Date Not on file Not on file Not on file Not on file documented as of this encounter Miscellaneous Notes * Telephone Encounter - MARYELLEN MALAVE - 08/27/2023 12:09 PM EST Pt called in wanting a refil on her depresion medication. Pt stated she has in appt for next sundayif you would go ahead and fill it before the appt. * Telephone Encounter - Eleni Tran NP - 08/27/2023 11:29 AM EST Needs an appt documented in this encounter Plan of Treatment Not on file documented as of this encounter Visit Diagnoses Not on filedocumented in this encounter Care Teams Core Placer Relationship Specialty Start Date End Date Wai [place] MD [address] [place] [address] PCP - [facility] 02/19/23 08/17/24 Eleni Tran NP [address] [place] [address] PCP - [facility] 01/28/2407/29 Wai White MD [address] [place] [address] PCP - [facility] 08/18/24 Sukhwinder Christy DO [address] [facility] [address] [place] [address] PCP - [facility] 07/30/24 Eleni Tran NP [address] [place] [address] Referring Physician Nurse Practitioner 02/19/23 Eleni Tran NP [address] [place] [address] Nurse Practitioner Family Medicine 08/18/24 documented as of this encounter
[2025-01-01 19:16] VITALS: BP 120/55; PULSE 78; TEMP 36.9; O2SAT 98; BMI 29.2
--- NOTE | 2025-01-01 19:25 | ED_ITS ---
HPI - Abdominal Pain General Chief Complaint: Abdominal Pain Stated Complaint: ABDOMINAL PAIN Time Seen by Provider: 01/01/25 19:17 Source: patient Mode of arrival: walk-in History of Present Illness HPI narrative: complains of epigastric pain for past week. demonstrates pain radiating across her left upper abdomen into her back and now starting to have pain radiate to the right side. Nausea a couple of days ago. No fever. Has constant ache but occ sharp pains. 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) Surgical History (Updated 01/01/25 @ 19:53 by Naheed Rubi RN) Tubal ligation status ?Z98.51 - Tubal ligation status (ICD-10) Social History Little interest or pleasure in doing things: not at all Feeling down, depressed, or hopeless: not at all Exam Constitutional Vital Signs, click to edit/add: Last Vital Signs Temp 98.4 F 01/01/25 19:16 Pulse 78 01/01/25 19:16 Resp 15 01/01/25 19:16 BP 120/55 01/01/25 19:16 Pulse Ox 98 01/01/25 19:16 O2 Del Method Room Air 01/01/25 19:16 Common normals: no apparent distress, average body habitus, oriented x3, no limitations, healthy appearing, alert and well nourished [facility] Common normals: normocephalic and head/scalp atraumatic Eye Common normals: EOMs intact bilaterally and conjunctivae normal Respiratory Common normals: normal respiratory effort, no retractions, no use of accessory muscles and clear to auscultation bilaterally Cardio Common normals: regular rate, regular rhythm, S1 normal heart sound and S2 normal heart sound GI Common normals: Normal to inspection, nondistended, normoactive bowel sounds present and soft to palpation Other: mild epigastric tenderness. no guarding Extremity Common normals: normal to inspection and full ROM Neuro Common normals: oriented x3, CN's II-XII intact bilaterally, moves all extremities, no focal motor deficits and no sensory deficits noted Psych Appearance: grossly normal Course Vital Signs Vital signs: Vital Signs Temperature 98.4 F 01/01/25 19:16 Pulse Rate 78 01/01/25 19:16 Respiratory Rate 15 01/01/25 19:16 Blood Pressure 120/55 01/01/25 19:16 Pulse Oximetry 98 01/01/25 19:16 Oxygen Delivery Method Room Air 01/01/25 19:16 Temperature 98.4 F 01/01/25 19:16 Pulse Rate 78 01/01/25 19:16 Respiratory Rate 15 01/01/25 19:16 Blood Pressure 120/55 01/01/25 19:16 Pulse Oximetry 98 01/01/25 19:16 Oxygen Delivery Method Room Air 01/01/25 19:16 MDM - Abdominal Pain MDM Narrative Medical decision making narrative: presents with atypical pain of her upper abdomen for past week. constant ache pa in and occ sharp pain. Describes pain radiating across her left upper abdomen to her back and now also radiating across the right side of her upper abdomen. Found to have mild epigastric tenderness without guarding. Labs unremarkable including LFTs and lipase. CT without acute findings. patient resting comfortably in no distress. Advised of the plan to treat her epigastric pain with protonix and have her follow up with her doctor for recheck Lab Data Labs: Lab Results 01/01/25 Range/Units 19:46 WBC 4.8 (4.0-11.0) 10^3/uL RBC 3.94 L (4.20-5.40) 10^6/uL Hgb 11.5 L (12.0-16.0) g/dL Hct 34.6 L (36.0-48.0) % MCV 87.8 (81.0-99.0) fL MCH 29.2 (26.7-34.0) pg MCHC 33.2 (29.9-35.2) g/dL RDW 12.1 (11.0-15.0) % Plt Count 199 (150-450) 10^3/uL MPV 10.5 (9.5-13.5) fL Neut % (Auto) 51.3 (43.0-75.0) % Lymph % (Auto) 37.9 (20.5-60.0) % Nash % (Auto) 7.5 (1.7-12.0) % Eos % (Auto) 2.1 (0.9-7.0) % Baso % (Auto) 0.4 (0.2-2.0) % Neut # (Auto) 2.5 (1.4-6.5) 10^3/uL Lymph # (Auto) 1.8 (1.2-3.8) 10^3/uL Nash # (Auto) 0.4 (0.3-0.8) 10^3/uL Eos # (Auto) 0.1 (0.0-0.7) 10^3/uL Baso # (Auto) 0.0 (0.0-0.1) 10^3/uL Abs Immat Gran (auto) 0.04 H (0.00-0.03) 10^3/uL Imm/Tot Granulo (auto) 0.8 H (0.0-0.5) % Sodium 142 (136-145) mmol/L Potassium 3.6 (3.5-5.1) mmol/L Chloride 106 (98-107) mmol/L Carbon Dioxide 26.4 (21.0-32.0) mmol/L Anion Gap 13.2 BUN 19.0 H (7.0-18.0) mg/dL Creatinine 0.73 (0.55-1.02) mg/dL Est GFR ( Amer) >60 (>=60 mL/min/1.73m^2) Est GFR (Non-Af Amer) >60 (>=60 mL/min/1.73m^2) BUN/Creatinine Ratio 26.0 Glucose 75 (74-106) mg/dL Lactate 1.8 (0.4-2.0) mmol/L Calcium 8.9 (8.5-10.1) mg/dL Total Bilirubin 0.3 (0.2-1.0) mg/dL AST 17 (15-37) U/L ALT 30 (14-59) U/L Alkaline Phosphatase 55 (46-116) U/L Total Protein 6.9 (6.4-8.2) g/dL Albumin 3.6 (3.4-5.0) g/dL Globulin 3.3 g/dL Albumin/Globulin Ratio 1.1 Lipase 34.0 (16.0-77.0) U/L Imaging Data Chest x-ray: Radiologist's impression: ITS Impressions Abdomen/Pelvis CT 01/01/25 19:28 IMPRESSION: No acute findings. Mild prominence of common bile duct likely secondary to cholecystectomy. Impression dictated by: Gunnar Trejo M.D. 01/01/2025 8:51 PM Dictation Location: [facility] Electronically authenticated by: [id number] Y Date: 01/01/2025 20:51 Discharge Plan Discharge Chief Complaint: Abdominal Pain Clinical Impression: Abdominal pain Patient Disposition: Home, Self-Care Prescriptions / Home Meds: No Action No Known Home Medications Print Language: [place] Instructions: Abdominal Pain (ED) Additional Instructions: take protonix every day and follow up with your doctor next week for recheck Referrals: Eleni Tran NP [Primary Care Provider, Family Practice] - 1 week
--- NOTE | 2025-01-01 19:28 | CT_ITS ---
The [address] [address] Patient Name: NEIL TIMMONS MRN: [id number] date: 1995 Sex: F Assigned Patient Location: ER Current Patient Location: ER Accession/Order Number: [id number] Exam Date: 01/01/2025 20:46 Report Date: 01/01/2025 20:51 At the request of: DIPESH DE LEÓN MD Procedure: CT abdomen pelvis w con CT Abdomen and Pelvis withcontrast TECHNIQUE: Axial imaging with 2-D reconstruction.100 cc of Omnipaque 300. The CT exam was performed using one or more the following dose reduction techniques: Automated exposure control, adjustment of the MA and/or Kv according to patient size, or use of the iterative reconstruction technique. COMPARISON: MRI the abdomen 10/08/2024 History: Epigastric pain LIMITATIONS: None LOWER THORAX Unremarkable LIVER: Unremarkable GALLBLADDER: Cholecystectomy clips identified. BILE DUCTS: 8 mm prominence of the common bile duct. No obstructing calcified stone seen. SPLEEN: Unremarkable PANCREAS: Unremarkable ADRENAL GLANDS: Unremarkable KIDNEYS:Unremarkable AORTA: No abdominal aortic aneurysm identified. RETROPERITONEUM: No significant retroperitoneal abnormalities identified. MESENTERY:Unremarkable SMALL BOWEL: The small bowel loops are nondistended. The gastric surgery changes APPENDIX: The appendix is normal. COLON: Unremarkable URINARY BLADDER: Urinary bladder is unremarkable. REPRODUCTIVE SYSTEM: Reproductive structures are unremarkable. PNEUMOPERITONEUM: None PERITONEAL FLUID:None BONY STRUCTURES: Unremarkable ABDOMINAL WALL: Unremarkable CT/CT abdomen pelvis w con IMPRESSION: No acute findings. Mild prominence of common bile duct likely secondary to cholecystectomy. Impression dictated by: Gunnar Trejo M.D. 01/01/2025 8:51 PM Dictation Location: [employer] Electronically authenticated by: [id number] Y Date: 01/01/2025 20:51
[2025-01-01 20:04] LABS: Basophils Percent Auto 0.4 % (0.2-2.0); Eosinophils Absolute Auto 0.1 10^3/uL (0.0-0.7); Eosinophils Percent Auto 2.1 % (0.9-7.0); Hematocrit 34.6 % (36.0-48.0); Hemoglobin 11.5 g/dL (12.0-16.0); Immature Granulocytes Abs Auto 0.04 10^3/uL (0.00-0.03); Immature Granulocytes Pct Auto 0.8 % (0.0-0.5); Lymphocytes Absolute Auto 1.8 10^3/uL (1.2-3.8); Lymphocytes Percent Auto 37.9 % (20.5-60.0); Mean Corpuscular HGB Conc 33.2 g/dL (29.9-35.2); Mean Corpuscular Hemoglobin 29.2 pg (26.7-34.0); Mean Corpuscular Volume 87.8 fL (81.0-99.0); Mean Platelet Volume 10.5 fL (9.5-13.5); Monocytes Absolute Auto 0.4 10^3/uL (0.3-0.8); Monocytes Percent Auto 7.5 % (1.7-12.0); Neutrophils Absolute Auto 2.5 10^3/uL (1.4-6.5); Neutrophils Percent Auto 51.3 % (43.0-75.0); Platelet Count 199 10^3/uL (150-450); Red Blood Count 3.94 10^6/uL (4.20-5.40); Red Cell Distribution Width 12.1 % (11.0-15.0); White Blood Count 4.8 10^3/uL (4.0-11.0)
[2025-01-01 20:30] LABS: Alanine Aminotransferase 30 U/L (14-59); Albumin Globulin Ratio 1.1; Albumin Level 3.6 g/dL (3.4-5.0); Alkaline Phosphatase 55 U/L (46-116); Anion Gap 13.2; Aspartate Amino Transferase 17 U/L (15-37); Bilirubin Total 0.3 mg/dL (0.2-1.0); Calcium 8.9 mg/dL (8.5-10.1); Carbon Dioxide 26.4 mmol/L (21.0-32.0); Chloride 106 mmol/L (98-107); Estimated GFR (African America >60 (>=60 mL/min/1.73m^2); Estimated GFR (Non-African Ame >60 (>=60 mL/min/1.73m^2); Globulin 3.3 g/dL; Glucose 75 mg/dL (74-106); Potassium 3.6 mmol/L (3.5-5.1); Sodium 142 mmol/L (136-145); Total Protein 6.9 g/dL (6.4-8.2)
[2025-01-01 20:33] LABS: Lactate/Lactic Acid 1.8 mmol/L (0.4-2.0)
[2025-01-01] MEDS: PANTOPRAZOLE SODIUM 40 MG TABLET.DR PO (22:17)
[2025-01-01 22:19] VITALS: BP 132/78; O2SAT 98
== END 2025-01-01 22:21 | disposition home or self-care (01) ==
PROVIDERS: Emergency Provider Internal Medicine; PCP Nurse Practitioner
DX: R10.13 Epigastric pain (principal); Z90.49 Acquired absence of other specified parts of digestive tract; Z98.84 Bariatric surgery status; Z98.51 Tubal ligation status
CPT/HCPCS: 36415; 74177; 80053; 83605; 83690; 85025; 99285; Q9967

== ENCOUNTER 2025-03-14 11:53 | Emergency (ER) | payer OTHER, SELFPAY ==
[2025-03-14 11:57] VITALS: BP 124/72; PULSE 79; TEMP 37.2; O2SAT 99; BMI 29.2
--- NOTE | 2025-03-14 12:56 | PC.NURSE ---
pt was admitted for a few days in [facility] last few days for dropping blood sugar and elevated liver enzymes. dc'd yesterday. c/o N/V and shakiness today
--- NOTE | 2025-03-14 13:01 | ECG_ITS ---
The [facility] Test Date: 2025-03-14 Pat Name: NEIL TIMMONS Department: Room: - Gender: Female Patient Support Associate: : 1995 Requested By: [id number] Order Number: [id number] Reading MD: RYLEE MILLS M.D. Measurements Intervals Lydia Rate: 70 P: 49 WV: 170 QRS: 39 QRSD: 80 T: 34 QT: 380 QTc: 400 Interpretive Statements 1100 Sinus rhythm 9110 normal ECG Compared to ECG 10/23/2023 19:06:27 No significant changes Electronically Signed On 03-14-2025 15:19:53 EDT by RYLEE MILLS M.D.
--- NOTE | 2025-03-14 13:01 | ED_ITS ---
HPI HPI - General Adult General Chief complaint: Weakness Stated complaint: WEAKNESS Time Seen by Provider: 03/14/25 12:55 Source: patient Mode of arrival: walk-in History of Present Illness HPI narrative: 30-year-old female presents to the emergency department for not feeling well. She was admitted for 4 days and was discharged yesterday from [facility]. She states her liver function tests were elevated but they do not know why. She has had this issue in the past. No fever or trauma or vomiting. She feels generally weak. No cough or shortness of breath or dysuria. Related Data Home Medications ?Medication ?Instructions ?Recorded ?Confirmed medroxyprogesterone 150 mg/mL 150 mg IM .every 3 month s 03/14/25 03/14/25 intramuscular suspension sertraline 50 mg tablet (Zoloft) 50 mg PO DAILY 03/14/25 Allergies Allergy/AdvReac Type Severity Reaction Status Date / Time No Known Drug Allergies Allergy Verified 01/01/25 19:21 Opioid HPI Opioid Management Most Recent Opioid Data: Last Pain Scale 7 01/01/25, 19:16 Review of Systems ROS Narrative A ten point review of systems is negative except as noted above. 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 General: The patient appears well and in no apparent distress. Patient is resting comfortably on cart. Skin: Warm, dry, no pallor noted. There is no rash noted. Head: Normocephalic, atraumatic Eye: Normal conjunctiva, no drainage Ears, Nose, Mouth, and Throat: oral mucosa is moist. Nares patent. Cardiovascular: Regular Rate and Rhythm Respiratory: Patient is in no distress, no accessory muscle use, lungs are clear to auscultation, no wheezing, rales or rhonchi Back: non-tender GI: Mild tenderness across her upper abdomen Musculoskeletal: The patient has no evidence of calf tenderness, no pitting edema, symmetrical pulses noted bilaterally Neurological: A&O, normal speech Psychiatric: Cooperative Constitutional Vital Signs, click to edit/add: Last Vital Signs Temp 99.0 F 03/14/25 11:57 Pulse 79 03/14/25 11:57 Resp 18 03/14/25 11:57 BP 124/72 03/14/25 11:57 Pulse Ox 99 03/14/25 11:57 O2 Del Method Room Air 03/14/25 11:57 Course Vital Signs Vital signs: Vital Signs Temperature 99.0 F 03/14/25 11:57 Pulse Rate 79 03/14/25 11:57 Respiratory Rate 18 03/14/25 11:57 Blood Pressure 124/72 03/14/25 11:57 Pulse Oximetry 99 03/14/25 11:57 Oxygen Delivery Method Room Air 03/14/25 11:57 Temperature 99.0 F 03/14/25 11:57 Pulse Rate 79 03/14/25 11:57 Respiratory Rate 18 03/14/25 11:57 Blood Pressure 124/72 03/14/25 11:57 Pulse Oximetry 99 03/14/25 11:57 Oxygen Delivery Method Room Air 03/14/25 11:57 Medical Decision Making MDM Narrative Medical decision making narrative: Tests were ordered but the patient eloped from the emergency department without informing the nurse here. Her treatment was not completed Discharge Plan Discharge Patient Disposition: Left Without Being Seen Discharge Date/Time: 03/14/25 13:47
== END 2025-03-14 13:47 | disposition left against medical advice (07) ==
LOC: ER 12:11
PROVIDERS: Emergency Provider Emergency Medicine; PCP Nurse Practitioner
DX: Z53.21 Procedure and treatment not carried out due to patient leaving prior to being seen by health care provider (principal); R53.1 Weakness
CPT/HCPCS: 80048; 80076; 81001; 82150; 83690; 84703; 93005; 99283